=== PATIENT | male | born 1955 | race Two or more races ===

== ENCOUNTER 2017-09-26 16:53 | Emergency (ER) | payer MEDICAID ==
[~2017-09-26] VITALS: Ht 177.8 cm; Wt 99.8 kg
[~2017-09-26 16:53] MED LIST: NKM
[2017-09-26 17:25] VITALS: BP 134/84
[2017-09-26] MEDS ORDERED: Sodium Chloride 500ML 500 ML IV ONE (17:29)
[2017-09-26] MEDS ORDERED: Dicyclomine HCl 10mg/5ml oral soln ORAL ONE (17:30)
[2017-09-26] MEDS ORDERED: Lidocaine 2% Visc 15ml soln ORAL ONE (17:30)
[2017-09-26] MEDS ORDERED: Mylanta II UD 30ml ORAL ONE (17:30)
[2017-09-26] MEDS ORDERED: Ketorolac 30mg Inj IV ONE (17:30)
[2017-09-26] MEDS ORDERED: Norco 5mg/325mg tab ORAL ONE (17:30)
--- NOTE | 2017-09-26 17:37 | Emergency Room Report ---
History of Present Illness General Chief Complaint: Abdominal Pain Source: Patient Present Illness HPI 62-year-old male patient presents ER complaining of left-sided abdominal pain for the past 5 days. Reports pain symptoms began after drinking tequila. Reports pain is been persistent since that time. Denies vomiting or diarrhea. Denies other acute symptoms. Denies history of kidney stones. Denies dysuria, hematuria. Reports history of bladder cancer, states he is currently in remission receiving treatment. Denies back or flank pain. Denies fever, chest pain, shortness of breath. Denies other acute symptoms. Reports last bowel movement yesterday. Allergies: Coded Allergies: No Known Allergies (Unverified , 11/30/15) Patient History Past Medical History: see triage record Reviewed Nursing Documentation: PMH: Agreed; PSxH: Agreed Nursing Documentation-PMH Past Medical History: No History, Except For Hx Cardiac Problems: No Hx Cancer: Yes - bladder Hx Gastrointestinal Problems: No Hx Neurological Problems: No Review of Systems All Other Systems: negative except mentioned in HPI Physical Exam Vital Signs Date Time Temp Pulse Resp B/P (MAP) Pulse Ox O2 Delivery O2 Flow Rate FiO2 09/26/17 17:02 73 16 134/84 95 Room Air Sp02 EP Interpretation: reviewed, normal General Appearance: well appearing, no apparent distress, alert, GCS 15, non- toxic Head: normocephalic, atraumatic Eyes: bilateral eye normal inspection, bilateral eye PERRL ENT: hearing grossly normal, normal pharynx, no angioedema, normal voice, uvula midline, moist mucus membranes Neck: full range of motion Respiratory: lungs clear, normal breath sounds, no rhonchi, no respiratory distress, no accessory muscle use, no wheezing, speaking full sentences Cardiovascular #1: regular rate, rhythm, no edema Gastrointestinal: soft, no mass, non-distended, no guarding, no rebound, tenderness - left lower quadrant, left upper quadrant, other - . Negative [place], negative Rovsing, negative obturator, no rebound, no guarding Genitourinary: no CVA tenderness Musculoskeletal: back normal, digits/nails normal, gait/station normal, normal range of motion, non-tender Neurologic: alert, oriented x3, responsive, motor strength/tone normal, sensory intact Psychiatric: mood/affect normal Skin: no rash Medical Decision Making PA Attestation Dr. Harris is my supervising Physician whom patient management has been discussed with. Diagnostic Impression: Primary Impression: Cholelithiasis Additional Impression: Constipation ER Course Pt. presents to the ED c/o abdominal pain. Ddx considered but are not limited to UTI, cholelithiasis, cholecystitis, pancreatitis, appendicitis, diverticulitis. Begin abdominal pain workup. Provided patient with pain medication. low suspicion for appendicitis, negative Rovsing, negative obturator. Vital signs: are WNL, pt. is afebrile ORDERS: CBC, CMP, Lipase, UA, CT abdomen pelvis, Zofran and pain medication. ER COURSE: CBC and CMP unremarkable, lipase within normal limits, UA unremarkable. No elevation WBCs. No elevation of BUN/creatinine. Low suspicion for pancreatitis at this time. does not require antibiotic treatment at this time. elevated blood glucose, denies history of diabetes, instructed patient to follow -up with primary care provider for further evaluation and treatment as needed at that time. CT abdomen shows no acute abnormality, cholelithiasis, moderate colonic stool., Long-standing lymph node in retroperitoneum. no nephrolithiasis noted. no diverticulitis noted on CT exam. Follow-up with urology due to history of bladder cancer. Informed patient of results, provided patient with copy of results. Will provide treatment for stool [place]. Follow up GI specialist to discuss further treatment and evaluation. Drink plenty of fluids. Advised on low fat diet. Avoid fatty foods. Cholelithiasis does not require acute intervention at this time but may require treatment in the future. Discuss lymph node with PCP at that time. patient reports pain symptoms improved since arrival to ER. Take Tylenol for pain symptoms, instructed patient that Motrin may be more irritating to GI system. Take with food and drink. DISCHARGE: Rx provided for Tylenol Rx provided for Miralax At this time pt. is stable for d/c to home. Patient resting comfortably, in no acute distress, nontoxic appearing, talking without difficulty. Rx provided to patient. Patient to take medications as instructed Will provide with patient care instructions and any necessary prescriptions. Care plan and follow-up instructions provided. Patient instructed to follow-up with primary care provider in 3 - 5 days. Patient questions asked and answered. Patient reports understanding and agreement to treatment plan. ER precautions given. Patient instructed to return to ER immediately for any new or worsening of symptoms including but not limited to increasing SOB, persistent fever, worsening of pain symptoms, intractable vomiting, blood in stool, urine, and/or emesis. - Please note that this Emergency Department Report was dictated using [employer] intake coordinator technology software, occasionally this can lead to erroneous entry secondary to interpretation by the dictation equipment. Labs Test 09/26/17 17:35 White Blood Count 6.2 K/UL (4.8-10.8) Red Blood Count 4.94 M/UL (4.70-6.10) Hemoglobin 16.1 G/DL (14.2-18.0) Hematocrit 43.7 % (42.0-52.0) Mean Corpuscular Volume 88 FL (80-99) Mean Corpuscular Hemoglobin 32.6 PG (27.0-31.0) Mean Corpuscular Hemoglobin Concent 36.9 G/DL (32.0-36.0) Red Cell Distribution Width 11.3 % (11.6-14.8) Platelet Count 183 K/UL (150-450) Mean Platelet Volume 7.3 FL (6.5-10.1) Neutrophils (%) (Auto) 54.4 % (45.0-75.0) Lymphocytes (%) (Auto) 32.5 % (20.0-45.0) Monocytes (%) (Auto) 9.5 % (1.0-10.0) Eosinophils (%) (Auto) 2.0 % (0.0-3.0) Basophils (%) (Auto) 1.7 % (0.0-2.0) Urine Color Yellow Urine Appearance Clear Urine pH 7 (4.5-8.0) Urine Specific [place] 1.015 (1.005-1.035) Urine Protein Negative (NEGATIVE) Urine Glucose (UA) Negative (NEGATIVE) Urine Ketones Negative (NEGATIVE) Urine Occult Blood 3+ (NEGATIVE) Urine Nitrite Negative (NEGATIVE) Urine Bilirubin Negative (NEGATIVE) Urine Urobilinogen 8 MG/DL (0.0-1.0) Urine Leukocyte Esterase Negative (NEGATIVE) Urine RBC 5-10 /HPF (0 - 0) Urine WBC 0-2 /HPF (0 - 0) Urine Squamous Epithelial Cells None /LPF (NONE/OCC) Urine Bacteria Few /HPF (NONE) Sodium Level 139 MMOL/L (136-145) Potassium Level 3.8 MMOL/L (3.5-5.1) Chloride Level 108 MMOL/L (98-107) Carbon Dioxide Level 25 MMOL/L (21-32) Anion Gap 6 mmol/L (5-15) Blood Urea Nitrogen 12 mg/dL (7-18) Creatinine 1.0 MG/DL (0.55-1.30) Estimat Glomerular Filtration Rate > 60 mL/min (>60) Glucose Level 126 MG/DL (74-106) Calcium Level 9.3 MG/DL (8.5-10.1) Total Bilirubin 0.6 MG/DL (0.2-1.0) Aspartate Amino Transf (AST/SGOT) 41 U/L (15-37) Alanine Aminotransferase (ALT/SGPT) 90 U/L (12-78) Alkaline Phosphatase 66 U/L (46-116) Total Protein 7.9 G/DL (6.4-8.2) Albumin 3.9 G/DL (3.4-5.0) Globulin 4.0 g/dL Albumin/Globulin Ratio 1.0 (1.0-2.7) Lipase 191 U/L (73-393) CT/MRI/US Diagnostic Results CT/MRI/US Diagnostic Results : Imaging Test Ordered: CT abdomen pelvis Impression 1. No acute abnormality. 2. Cholelithiasis without acute cholecystitis. 3. Moderate colonic stool burden, which may indicate slow transit and may represent a cause for abdominal pain. 4. Long-standing mild retroperitoneal lymph node prominence since prior study, likely benign given stability over time in the absence of known metastatic disease. Last Vital Signs Date Time Temp Pulse Resp B/P (MAP) Pulse Ox O2 Delivery O2 Flow Rate FiO2 09/26/17 17:25 73 16 134/84 95 Room Air Disposition: HOME, SELF-CARE Condition: Stable Scripts Polyethylene Glycol* (MIRALAX*) 17 Gm Powd.pack 17 GM ORAL DAILY for 4 Days, #4 PACKET Prov: Azael Romero 09/26/17 Acetaminophen* (TYLENOL EXTRA STRENGTH*) 500 Mg Tablet 500 MG ORAL Q8H PRN for Prn Headache/Temp > 101, #30 TAB 0 Refills Prov: Azael Romero 09/26/17 Patient Instructions: Cholelithiasis, Constipation, Adult, [id number] Additional Instructions: Followup with primary care provider in 3 -5 days. Discuss referral to GI specialist. Drink plenty of fluids. Take medications as directed. Patient questions asked and answered. ER precautions given, patient instructed to return to ER immediately for any new or worsening of symptoms. Azael Romero Sep 26, 2017 17:37
[2017-09-26 17:51] LABS: APPEARANCE,URINE CLEAR; BILIRUBIN, URINE NEGATIVE (NEGATIVE); GLUCOSE, URINE (UA) NEGATIVE (NEGATIVE); KETONES,URINE NEGATIVE (NEGATIVE); LEUKOCYTE ESTERASE ,URINE NEGATIVE (NEGATIVE); NITRITE,URINE NEGATIVE (NEGATIVE); PH,URINE 7 (4.5-8.0); PROTEIN,URINE NEGATIVE (NEGATIVE); UROBILINOGEN,URINE 8 MG/DL (0.0-1.0)
[2017-09-26 17:59] LABS: ANION GAP 6 mmol/L (5-15); BASOPHILS % (AUTO) 1.7 % (0.0-2.0); BLOOD UREA NITROGEN 12 mg/dL (7-18); CALCIUM 9.3 MG/DL (8.5-10.1); CARBON DIOXIDE 25 MMOL/L (21-32); CHLORIDE 108 MMOL/L (98-107); HEMATOCRIT 43.7 % (42.0-52.0); HEMOGLOBIN 16.1 G/DL (14.2-18.0); LYMPHOCYTES % (AUTO) 32.5 % (20.0-45.0); MEAN CORPUSCULAR VOLUME 88 FL (80-99); MONOCYTES % (AUTO) 9.5 % (1.0-10.0); NEUTROPHILS % (AUTO) 54.4 % (45.0-75.0); PLATELET COUNT 183 K/UL (150-450); POTASSIUM 3.8 MMOL/L (3.5-5.1); RED BLOOD COUNT 4.94 M/UL (4.70-6.10); RED CELL DISTRIBUTION WIDTH 11.3 % (11.6-14.8); SODIUM 139 MMOL/L (136-145); WHITE BLOOD COUNT 6.2 K/UL (4.8-10.8)
[2017-09-26 18:01] LABS: COLOR,URINE YELLOW
[2017-09-26 18:04] LABS: ALANINE AMINOTRANSFERASE 90 U/L (12-78); ALBUMIN 3.9 G/DL (3.4-5.0); ALKALINE PHOSPHATASE 66 U/L (46-116); ASPARTATE AMINO TRANSFERASE 41 U/L (15-37); BILIRUBIN,TOTAL 0.6 MG/DL (0.2-1.0)
--- NOTE | 2017-09-26 18:22 | Diagnostic Imaging Report ---
EXAM: CT Abdomen and Pelvis Without Intravenous Contrast CLINICAL HISTORY: PAIN TECHNIQUE: Axial computed tomography images of the abdomen and pelvis without intravenous contrast. CTDI is 17.64 mGy and DLP is 1038 mGy-cm. One or more of the following dose reduction techniques were used: automated exposure control, adjustment of the mA and/or kV according to patient size, use of iterative reconstruction technique. COMPARISON: Unenhanced CT abdomen and pelvis 11/30/15 FINDINGS: Lung bases: Unremarkable. No mass. No consolidation. ABDOMEN: Liver: Unremarkable. Gallbladder and bile ducts: Cholelithiasis without acute cholecystitis. No ductal dilation. Pancreas: Unremarkable. No ductal dilation. Spleen: Unremarkable. No splenomegaly. Adrenals: Unremarkable. No mass. Kidneys and ureters: Unremarkable. No obstructing stones. No hydronephrosis. Stomach and bowel: Moderate colonic stool burden, which may indicate slow transit and may represent a cause for abdominal pain. No obstruction. No mucosal thickening. PELVIS: Appendix: No findings to suggest acute appendicitis. Bladder: Unremarkable. No stones. Reproductive: Unremarkable as visualized. ABDOMEN and PELVIS: Intraperitoneal space: Unremarkable. No free air. No significant fluid collection. Bones/joints: Mild degenerative age related spine findings. No acute fracture. No dislocation. Soft tissues: Unremarkable. Vasculature: Unremarkable. No abdominal aortic aneurysm. Lymph nodes: Long-standing mild retroperitoneal lymph node prominence since prior study, likely benign given stability over time in the absence of known metastatic disease. IMPRESSION: 1. No acute abnormality. 2. Cholelithiasis without acute cholecystitis. 3. Moderate colonic stool burden, which may indicate slow transit and may represent a cause for abdominal pain. 4. Long-standing mild retroperitoneal lymph node prominence since prior study, likely benign given stability over time in the absence of known metastatic disease.
[2017-09-26] MEDS ORDERED: TYLENOL EXTRA500 MG ORAL (19:18)
[2017-09-26] MEDS ORDERED: MIRALAX17 GM ORAL (19:18)
[2017-09-26 19:25] VITALS: BP 134/84
== END 2017-09-26 19:25 | disposition home or self-care (01) ==
LOC: EMR 17:17
DX: K80.20 Calculus of gallbladder without cholecystitis without obstruction (principal); K59.00 Constipation, unspecified; Z85.51 Personal history of malignant neoplasm of bladder
CPT/HCPCS: 36415; 74176; 80053; 81003; 83690; 85025; 96374; 96375; 99284; J1885; J2405; J7040; 96365